=== PATIENT | male | born 1955 | race American Indian/Alaskan Native ===

== ENCOUNTER 2017-06-14 07:29 | Day surgery (SDC) | payer OTHER ==
[2017-06-14] MEDS ORDERED: Propofol 10 mg/ml Inj (20 ML) ONE (09:34)
[2017-06-14] MEDS ORDERED: ePHEDrine 50 mg/ml Inj ONE (09:51)
[2017-06-14 11:27] VITALS: BP 138/75; PULSE 60; RESP 14; TEMP 97.1; O2SAT 98
== END 2017-06-14 11:20 | disposition home or self-care (01) ==
LOC: C.ENDO 07:29
PROVIDERS: ATTEND Internal Medicine
DX: Z12.11 Encounter for screening for malignant neoplasm of colon (principal); K57.90 Diverticulosis of intestine, part unspecified, without perforation or abscess without bleeding; Z85.048 Personal history of other malignant neoplasm of rectum, rectosigmoid junction, and anus
CPT/HCPCS: 45378; J2704